=== PATIENT | male | born 1995 | race Hispanic/Latino ===

== ENCOUNTER 2017-09-25 18:14 | Emergency (ER) | payer MEDICAID, OTHER ==
[2017-09-25 18:21] VITALS: O2SAT 100
[2017-09-25] MEDS ORDERED: Ofloxacin 0.3% Otic Soln AD STA (18:52)
--- NOTE | 2017-09-25 18:55 | C.PDOC ---
History Of Present Illness 22 y/o male presents to ED with complains right ear pain for 2 days. Patient states it feels clogged and hurts when moves his jaw or touches ear. Patient admits to recent swimming. denies fever, drainage, foreign body. Time Seen by Provider: 09/25/17 18:48 Chief Complaint (Nursing): ENT Problem History Per: Patient History/Exam Limitations: None Onset/Duration Of Symptoms: Days Current Symptoms Are (Timing): Still Present Past Medical History Reviewed: Historical Data, Nursing Documentation, Vital Signs Vital Signs: Last Vital Signs Temp 99.1 F 09/25/17 19:30 Pulse 90 09/25/17 19:30 Resp 16 09/25/17 19:30 BP 113/73 09/25/17 19:30 Pulse Ox 100 09/25/17 19:30 - Medical History PMH: No Chronic Diseases Surgical History: No Surg Hx Family History: States: No Known Family Hx - Social History Hx Tobacco Use: No Hx Alcohol Use: No Hx Substance Use: No - Immunization History Hx Influenza Vaccination: No Hx Pneumococcal Vaccination: No Review Of Systems Constitutional: Negative for: Fever, Chills ENT: Positive for: Ear Pain Respiratory: Negative for: Cough Gastrointestinal: Negative for: Nausea, Vomiting Skin: Negative for: Rash Physical Exam - Physical Exam Appears: Non-toxic, No Acute Distress Skin: Warm, Dry, No Rash Head: Atraumatic, Normacephalic Eye(s): bilateral: PERRL, EOMI Ear(s): Left: Normal, Right: Other (right ear canal edematous, erythematous and tender on speculum exam, tragus tender; no mastoid tenderness) Oral Mucosa: Moist Throat: Normal, No Erythema, No Exudate Cardiovascular: Rhythm Regular Respiratory: Normal Breath Sounds, No Rales, No Rhonchi, No Wheezing Neurological/Psych: Oriented x3, Normal Speech ED Course And Treatment O2 Sat by Pulse Oximetry: 100 (RA) Pulse Ox Interpretation: Normal Medical Decision Making Medical Decision Making: clinical impression Otitis externa. Treated with ofloxacin otic drops. Disposition Counseled Patient/Family Regarding: Diagnosis, Need For Followup, Rx Given - Disposition Referrals: Joe Lewis MD [Staff Provider] - Disposition: HOME/ ROUTINE Disposition Time: 19:06 Condition: GOOD Additional Instructions: apply ear drops to ear twice daily for one week follow up with ENT if symptoms persist Prescriptions: Ciprofloxacin/Dexamethasone [Ciprodex 0.3%-0.1% 7.5 Ml] 7.5 ml AD BID #1 bottle Instructions: Outer Ear Infection (DC) Forms: [facility] ([place]) - POA Present On Arrival: None - Clinical Impression Clinical Impression: Otitis externa - PA / PIPE LAYER / Resident Statement MD/DO has reviewed & agrees with the documentation as recorded. - Scribe Statement The provider has reviewed the documentation as recorded by the Oscaribarmando Ridley All medical record entries made by the [place] were at my direction and personally dictated by me. I have reviewed the chart and agree that the record accurately reflects my personal performance of the history, physical exam, medical decision making, and the department course for this patient. I have also personally directed, reviewed, and agree with the discharge instructions and disposition.
[2017-09-25 19:55] VITALS: BP 113/73; PULSE 90; RESP 16; TEMP 99.1
== END 2017-09-25 19:30 | disposition home or self-care (01) ==
LOC: C.ER 18:14
DX: H60.91 Unspecified otitis externa, right ear (principal)